=== PATIENT | female | born 2005 | race Hispanic/Latino ===

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

== ENCOUNTER 2024-04-25 23:22 | Emergency (ER) | payer OTHER, SELFPAY ==
[2024-04-25 23:33] VITALS: BP 130/70
--- NOTE | 2024-04-26 00:12 | ED.GENMED ---
History of Present Illness
General
Chief Complaint: Musculo-Skeletal Complaint
Time Seen by Provider: 04/26/24 00:11
History of Present Illness
History of Present Illness:
HPI: Patient presents due to right-sided neck pain that worsens with attempted rotation. She recently started having cold symptoms as well. The pain is primarily localized to the right side of the upper back/lower neck.
EXAM:
GENERAL: Well appearing but in moderate distress due to pain at the neck
HEENT: Moist oral mucosa
NECK: She holds her head side bent and rotated related the pain, she has markedly decreased active range of motion to rotation of the cervical spine due to pain
NEUROLOGIC: Excellent strength all extremities, no obvious coordination deficits
PSYCHIATRIC: Appropriate mental status, normal insight and judgement
EXTREMITIES: Nontender, no edema, moves all extremities equally
SKIN: No rash, no lesions
TIME OF INITIAL ENCOUNTER: 12:40 AM
NUMBER AND COMPLEXITY OF PROBLEMS ADDRESSED AT THE ENCOUNTER
� Chronic conditions affecting care: Has had COVID in the past
� Acute Exacerbation and/or Progression of Chronic Illness: This is an acute problem
� Differential Diagnosis includes: Torticollis, muscle strain, muscle spasm
AMOUNT AND/OR COMPLEXITY OF DATA TO BE REVIEWED AND ANALYZED
� I performed an independent evaluation of and my interpretation is:
EKG:
CT:
X-rays:
Laboratory Studies:
Other:
� Review of other/old records: The patient has had evaluations here related to
� Clinical information was obtained by an independent historian: I spoke to significant other at bedside
� Prescriptions/Medications Considered but not given: Will hold off on narcotic analgesia
� Further testing considered but not performed:
RISK OF COMPLICATIONS AND/OR MORBIDITY OR MORTALITY OF PATIENT MANAGEMENT
� Social determinants of health affecting care: Lives at home
� Discussion with other providers:
� Escalation of care including admission/observation vs risk of discharge considered: Suspect muscular etiology�will give short course of Valium. I have also given her a lidocaine injection with bupivacaine and lidocaine. We
also gave Toradol.
Past History
Past History
ED Past Medical History: None
Phy Exam
Physical Exam
Physical Exam:
See HPI
Course
Orders/Labs/Results
Orders:
Orders
04/26/24 00:40
Diazepam [Valium] 5 mg PO NOW STA
Ketorolac [Toradol] 30 mg IM NOW STA
Vital Signs
Initial and Last Documented VS:
Initial Vital Signs
Temp Pulse Resp BP Pulse Ox
99.3 F 96 18 130/70 100
04/25/24 23:33 04/25/24 23:33 04/25/24 23:33 04/25/24 23:33 04/25/24 23:33
Last Documented Vital Signs
Temp Pulse Resp BP Pulse Ox
99.3 F 96 18 130/70 100
04/25/24 23:33 04/25/24 23:33 04/25/24 23:33 04/25/24 23:33 04/25/24 23:33
Procedures
Other
Indication for procedure:: Muscle spasm
Procedure completed by: Nh, Dr. Costa
Consent form signed: No
Additional Procedure:
I have provided a trigger point injection in the right trapezius musculature and injected only approximately 1 cm�used 0.5 mL of lidocaine 1% and 0.5 mL of bupivacaine
*Critical Care Note
Total Time (30-74mins, 75-104mins- exclusive of procedures): Not Applicable
ED Attending Note
-
Portions of this chart may have been created with voice recognition software.� Occasional wrong word or��sound alike� substitutions may have occurred due to the inherent limitations of voice recognition software.
Discharge Plan
Departure
Prescriptions:
New
diazepam [Valium] 5 mg tablet
5 mg PO BID PRN (Reason: muscle spasm) Qty: 6 0RF
No Action
iron 45 mg
1 tab PO BID
Flintstones Gummies Tablet,Chewable
2 tab PO DAILY
ibuprofen 600 mg Tablet
600 mg PO Q6HPRN PRN (Reason: cramps) Qty: 45 0RF
acetaminophen 325 mg Tablet
650 mg PO Q4HPRN PRN (Reason: mild pain) Qty: 0 0RF
sennosides-docusate sodium [Stool Softener-Stimulant Laxat] 8.6-50 mg Tablet
1 tab PO DAILYPRN PRN (Reason: constipation) Qty: 0 0RF
labetalol 200 mg Tablet
200 mg PO BID Qty: 60 0RF
oxycodone-acetaminophen [Percocet] 5-325 mg tablet
1 tab PO Q4H PRN (Reason: pain) Qty: 10 0RF
Referrals:
Sadaf Munguia PA [Family Provider] -
Interventions
Interventions:
*Risk Screen - Suicide Last Done: 04/25/24 23:28
*Neglect/Abuse Screening Last Done: 04/25/24 23:28
Discharge Date and Time
Print Language: DJIBOUTIAN
[2024-04-26] MEDS: VALIUM 5 MG PO (00:47)
[2024-04-26] MEDS: TORADOL 30 MG IM (00:47)
[2024-04-26 01:10] VITALS: BP 132/75
== END 2024-04-26 01:12 | disposition home or self-care (01) ==
LOC: EMR 23:22
PROVIDERS: EMERGENCY PHYSICIAN Emergency Medicine; FAMILY PHYSICIAN Family Medicine
DX: M54.2 Cervicalgia (principal); M62.838 Other muscle spasm; R09.89 Other specified symptoms and signs involving the circulatory and respiratory systems; Z86.16 Personal history of COVID-19
CPT/HCPCS: 99284; 20552; 96372